=== PATIENT | female | born 1940 | race Caucasian/White ===

== ENCOUNTER → 2018-11-20 | Day surgery (SDC) | payer MEDICARE, OTHER ==
[2018-11-13 14:49] LABS: Urine WBC None Seen /hpf (0 - 5)
[2018-11-13 15:00] LABS: Basophils # (auto) 0 uL; Basophils % (auto) 0.4 % (0.0-2.0); Eosinophils # (auto) 0.1 uL; Eosinophils % (auto) 1.9 % (0.0-7.0); Hematocrit 43.9 % (36.0-46.0); Hemoglobin 14.6 g/dL (12.2-16.2); Lymphocytes # (auto) 1.5 uL; Lymphocytes % (auto) 25.5 % (10.0-50.0); Mean Corpuscular Hemoglobin 30.2 pg (28.0-32.0); Mean Corpuscular Hgb Conc. 33.3 g/dL (32.0-36.0); Mean Corpuscular Volume 90.7 fL (80.0-100.0); Monocytes # (auto) 0.6 uL; Monocytes % (auto) 10.2 % (0.0-12.0); Neutrophils # (auto) 3.6 uL; Platelet Count (auto) 235 10^3/uL (140-450); Red Blood Cells 4.85 10^6/uL (4.0-5.20); Red Cell Distribution Width 15.3 % (11.8-14.3); White Blood Cell 5.8 10^3/uL (4.4-10.8)
[2018-11-13 15:01] LABS: Urine Bacteria NONE SEEN /hpf (None Seen); Urine Blood Negative /uL (Negative); Urine Specific Gravity 1.005 (1.001-1.035)
[2018-11-13 15:06] LABS: INR 0.96 (0.9-1.15); Partial Thromboplastin Time 26.5 sec (23.64-32.05)
[2018-11-13 15:07] LABS: Albumin 3.9 g/dL (3.4-5.0); BUN/Creatinine Ratio 21.6; Calcium 9.1 mg/dL (8.5-10.1); Potassium 4.3 mmol/L (3.5-5.1)
[2018-11-13 15:09] LABS: Bilirubin, Total 0.4 mg/dL (0.2-1.0); Total Protein 7.2 g/dL (6.4-8.2)
[~2018-11-20] VITALS: Ht 157.5 cm; Wt 68.0 kg
[~2018-11-20] MED LIST: ACETAMINOPHEN 500 MG TAB PO PRN; AMLO10TA12 PO; BUPIVACAINE W/ EPINEPH 0.25% INJ 50ML MDV ONE; CALC-315 OR; ESCI20TA PO; FAMO10TA PO; GLYCOPYRROLATE 0.2 MG/ML 1ML VIAL ONE; HYDROmorphone HCL 2 MG/ML VL IV PRN; KETOROLAC TROMETH 60MG/2ML VIAL ONE; LANS15CA21 PO; LEVO75TA6 PO; LIDOCAINE HCL 2% TOP JELLY 5ML TOP ONE; MEPERIDINE HCL (25 MG/ML) 1ML VIAL ONE; METHYLENE BLUE 0.5% 5MG/ML 10ml AMP IV ONE; METOCLOPRAMIDE HCL 5MG/ml INJ 2ml VIAL IV ONE; MIDAZOLAM HCL 1MG/1ML-2 ML VIAL ONE; MORPHINE SULFATE 4 MG/ML SYR/VIAL IV PRN; MULT-927 PO; NEOSTIGMINE 1 MG/ML INJ (10mg/10ML VIAL) ONE; NIAC500T64 PO; ONDANSETRON HCL 4 MG/2 ML VIAL IV PRN; PROPOFOL 10 MG/ML 20 ML IV ONE; ROCURONIUM 10MG/ML 10ML VIAL IV ONE; SODIUM CHLORIDE 0.9% 1,000 ML IV SCH; SODIUM CHLORIDE LOCK 30 ML ONE; SUCCINYLCHOLINE CHLORIDE 20 MG/ML 10ML VIAL IV ONE; VALA500T33 PO; VITA1CAP15 PO; [UNRECOGNIZED DRUG - CODE] PO; ceFAZolin 1GM/50ML 100 ML IV ONE; ceFAZolin 1GM/50ML 50 ML IV ONE; fentaNYL CITRATE 100 MCG/2 ML VL ONE; fentaNYL CITRATE 5 ML ONE
[2018-11-20 19:41] VITALS: BP 100/55
== END | disposition home or self-care (01) ==
LOC: SUR 12:20
PROVIDERS: ATTEND Obstetrics & Gynecology
DX: N81.5 Vaginal enterocele (principal); N95.2 Postmenopausal atrophic vaginitis; N95.8 Other specified menopausal and perimenopausal disorders; D51.9 Vitamin B12 deficiency anemia, unspecified; K21.9 Gastro-esophageal reflux disease without esophagitis; I10 Essential (primary) hypertension; E07.9 Disorder of thyroid, unspecified; G89.29 Other chronic pain; F32.9 Major depressive disorder, single episode, unspecified; E78.5 Hyperlipidemia, unspecified; K44.9 Diaphragmatic hernia without obstruction or gangrene; Z98.890 Other specified postprocedural states; Z79.899 Other long term (current) drug therapy; Z98.51 Tubal ligation status; Z90.49 Acquired absence of other specified parts of digestive tract; Z90.710 Acquired absence of both cervix and uterus
CPT/HCPCS: 36415; 57425; 80053; 81001; 85025; 85610; 85730; 86850; 86900; 86901; 87086; 93005; C1713; C1763; J0330; J0690; J1885; J2175; J2250; J2704; J3010; Q4131; Q9968